=== PATIENT | female | born 1960 | race Caucasian/White ===

== ENCOUNTER → 2016-11-27 | Outpatient (CLI) | payer BC ==
[2016-11-30 09:51] LABS: Lyme IgG/IgM 0.1 Index; Lyme IgG/IgM Interp NEGATIVE (NEGATIVE)
== END | disposition home or self-care (01) ==
LOC: LABWHC1 12:49
PROVIDERS: ATTEND Psychiatry & Neurology Neurology
DX: G35 Multiple sclerosis (principal)
CPT/HCPCS: 36415; 84165; 86618

== ENCOUNTER → 2016-12-09 | Outpatient (CLI) | payer OTHER, BC ==
--- NOTE | 2016-12-09 11:17 | MR ---
EXAMINATION TYPE: MR pelvis wo/w con DATE OF EXAM: 12/09/2016 COMPARISON: NONE HISTORY: acute pain due to trauma CONTRAST: Standard multiplanar, multisequence MRI departmental protocol utilizing 6 mL intravenous Gadavist courtney olinium contrast. FINDINGS: Exam is limited by motion artifact. There is no obvious areas of abnormal marrow edema or contusion. No free fluid. Tarlov cysts are incidentally noted within the sacrum. There is degenerative disc disease involving t he lower lumbosacral spine. Suspect a spina bifida occulta lumbosacral junction. Facet arthropathy in volving the lower lumbar segment Mild trabeculation of the bladder correlate for chronic cystitis. No enhancing masses. IMPRESSION: No acute process. If there is concern for lumbar disc herniation correlate with MRI lumbar spine. Mild trabeculation of bladder. Correlate for chronic cystitis.
== END | disposition home or self-care (01) ==
LOC: RADMRIMAIN 09:14
PROVIDERS: ATTEND Physical Medicine & Rehabilitation
DX: N32.89 Other specified disorders of bladder (principal); M67.951 Unspecified disorder of synovium and tendon, right thigh; M50.221 Other cervical disc displacement at C4-C5 level; M50.321 Other cervical disc degeneration at C4-C5 level; M51.17 Intervertebral disc disorders with radiculopathy, lumbosacral region; M47.817 Spondylosis without myelopathy or radiculopathy, lumbosacral region; M79.1 Myalgia; S16.1XXA Strain of muscle, fascia and tendon at neck level, initial encounter; M46.1 Sacroiliitis, not elsewhere classified; G89.11 Acute pain due to trauma; M79.601 Pain in right arm; M79.602 Pain in left arm
CPT/HCPCS: 72197; A9581

== ENCOUNTER → 2020-07-16 | Outpatient (CLI) | payer MEDICARE | END | disposition home or self-care (01) | LOC: RADCTMAIN 16:27 | PROVIDERS: ATTEND Surgery | DX: Z53.9 Procedure and treatment not carried out, unspecified reason (principal) ==

== ENCOUNTER → 2020-07-18 | Outpatient (CLI) | payer MEDICARE ==
--- NOTE | 2020-07-18 08:52 | CT ---
EXAMINATION TYPE: CT abdomen pelvis w con DATE OF EXAM: 07/18/2020 COMPARISON: HISTORY: incisional hernia CT DLP: 1273 mGycm Automated exposure control for dose reduction was used. TECHNIQUE: Helical acquisition of images was performed from the lung bases through the pelvis. CONTRAST: Performed with Oral Contrast and with IV Contrast, patient injected with 100 mL of Isovue 300. FINDINGS: The lung bases are clear. There is surgical absence of the gallbladder. There is no biliary ductal dilatation. No focal masses seen within the liver pancreas, spleen or adrenal glands. The bowel loops are normal in caliber. There is no free intraperitoneal air or fluid. There is no paco dence of hernia. The kidneys excrete contrast promptly and symmetrically and there is no solid renal mass or hydroneph rosis. There is no retroperitoneal adenopathy or hemorrhage in the caliber of the abdominal aorta is normal. There is no pelvic mass, free fluid, abscess or adenopathy. The osseous structures are intact. IMPRESSION: No significant abnormality seen.
== END | disposition home or self-care (01) ==
LOC: RADCTMAIN 07:20
PROVIDERS: ATTEND Surgery
DX: K43.2 Incisional hernia without obstruction or gangrene (principal)
CPT/HCPCS: 74177; Q9967

== ENCOUNTER 2020-07-29 08:18 | Day surgery (SDC) | payer MEDICARE ==
[2020-07-24 16:12] VITALS: BMI 24.9
[~2020-07-29 08:18] MED LIST: ACETAMINOPHEN TAB 500 MG TAB PO PRN; DEXAMETHASONE SOD PHOSPHATE 4 MG/ML 1 ML VIAL IV ONE; HEPARIN SODIUM,PORCINE/PF 5,000 UNIT/0.5 ML SYRINGE SQ PRN; HYDROmorphone 0.5 MG/0.5 ML SYRINGE IVP PRN; LACTATED RINGERS 1,000 ML IV SCH; LIDOCAINE 1% (10MG/ML) FOR IV START INTRADERMA PRN; MIDAZOLAM 2 MG/2 ML VIAL IV PRN; ONDANSETRON 4 MG/2 ML VIAL IVP ONE; Pre Op ABX Message 1 EACH MISC MISCELLANE ONE
[2020-07-29] MEDS ORDERED: SCOPOLAMINE 1.5MG/72HR PATCH TRANSDERM ONE (09:07)
--- NOTE | 2020-07-29 10:23 | P.GSHP ---
History of Present Illness H&P Date: 07/29/20 Chief Complaint: Abdominal pain, adhesions Is a 59-year-old female who presents today for laparoscopic lysis of adhesions. Patient's had complaints of pain and nausea and partial bowel obstruction.. Past Medical History Past Medical History: Eye Disorder, Fibromyalgia, Musculoskeletal Disorder, Osteoarthritis (OA), Rheumatoid Arthritis (RA) Additional Past Medical History / Comment(s): "Beginnings of Glaucoma." Ankylosing Spondalosis (). Hx CoVid 03/27. History of Any Multi-Drug Resistant Organisms: None Reported Past Surgical History: Section, Cholecystectomy, Ear Surgery, Hernia Repair, Orthopedic Surgery, Tubal Ligation Additional Past Surgical History / Comment(s): Right knee surgery, recontruction of left ear. Umbilical hernia repair. Past Anesthesia/Blood Transfusion Reactions: No Reported Reaction, Motion Sickness Additional Past Anesthesia/Blood Transfusion Reaction / Comment(s): "Slow to wake up". Dad had PONV. Past Psychological History: No Psychological Hx Reported Smoking Status: Former smoker Past Alcohol Use History: Rare Additional Past Alcohol Use History / Comment(s): "Smoked as a kid." Past Drug Use History: None Reported - Past Family History Mother Family Medical History: Cancer Additional Family Medical History / Comment(s): Ovarian Cancer. Father Family Medical History: Cancer Additional Family Medical History / Comment(s): Testicular Cancer. Medications and Allergies Home Medications Medication Instructions Recorded Confirmed Type Latanoprost/Pf [Latanoprost 0.005% 1 drop BOTH EYES HS 07/24/20 07/29/20 History Eye Drop] Allergies Allergy/AdvReac Type Severity Reaction Status Date / Time codeine Allergy Rash/Hives Verified 07/29/20 08:35 Pepper Allergy Dyspnea Verified 07/24/20 16:15 povidone-iodine Allergy Rash/Hives Verified 07/24/20 16:14 [From Betadine] shellfish derived [Shrimp] Allergy Stuffy/runny Verified 07/24/20 16:15 nose soap [From Betadine] Allergy Rash/Hives Verified 07/24/20 16:14 Cilantro Allergy Sores in Uncoded 07/24/20 16:15 mouth/throat Surgical - Exam Vital Signs Temp Pulse Resp BP Pulse Ox 98.5 F 81 20 151/73 94 L 07/29/20 08:43 07/29/20 08:43 07/29/20 08:43 07/29/20 08:43 07/29/20 08:43 - General well developed, well nourished, no distress - Eyes PERRL - ENT normal pinna - Neck no masses - Respiratory normal expansion - Cardiovascular Rhythm: regular - Abdomen Abdomen: soft, non tender Assessment and Plan Assessment: History of adhesions. We'll perform laparoscopic lysis of adhesions.
[2020-07-29] MEDS ORDERED: fentaNYL (PF) 50 MCG/ML 2 ML AMP ONE (10:35)
[2020-07-29] MEDS ORDERED: ROCURONIUM 10 MG/ML (5 ML VIAL) IV ONE (10:35)
[2020-07-29] MEDS ORDERED: GLYCOPYRROLATE 0.2 MG/ML 2 ML VIAL ONE (10:35)
[2020-07-29] MEDS ORDERED: PROPOFOL 10 MG/ML 20 ML VIAL IV ONE (10:35)
[2020-07-29] MEDS ORDERED: NEOSTIGMINE 1 MG/ML 10 ML VIAL ONE (10:35)
[2020-07-29] MEDS ORDERED: SUCCINYLCHOLINE CHLORIDE 100 MG/5 ML SYR IV ONE (10:35)
[2020-07-29] MEDS ORDERED: LIDOCAINE 1% INJ 10MG/ML (20 ML MDV) ONE (10:35)
[2020-07-29] MEDS ORDERED: SODIUM CHLORIDE 0.9% 100 ML with ceFAZolin 2,000 MG IV ONE ×2 (10:56)
[2020-07-29] MEDS ORDERED: BUPIVACAIN-EPI 0.5%-1:200,000 30 ML VIAL SQ ONE (11:05)
--- NOTE | 2020-07-29 11:23 | P.OP ---
Date of Procedure: 07/29/20 Preoperative Diagnosis: Adhesions Postoperative Diagnosis: Adhesions, Procedure(s) Performed: Laparoscopic lysis of adhesions Appendectomy Anesthesia: SENA Surgeon: Luis Leggett Estimated Blood Loss (ml): 10 Pathology: other (Appendix) Condition: stable Disposition: PACU Description of Procedure: The patient's placed the operative table in supine position. She received general anesthesia. Her abdomen was prepped and draped usual fashion. The skin incision sites were anesthetized 1% local Xylocaine. In the left upper quadrant a skin incision made. Using a 5 ohmmeter operative trocar under visualization the Cavity is entered. The abdomen was insufflate. After adequate insufflation a 5 mm trochars placed in the left lower quadrant and then a 10 mm trocar is placed in the left lateral position. The there were some adhesions to the right colon on the lateral abdominal wall. The lysis sharp dissection. The appendix. Been questionable inflamed. At this point the mesial appendix was divided. And then Endoloop was replaced Retavase the appendix and then the epididymis performed with Harmonic scissors. The appendix was brought out through the 10 mL trocar site. There are no other adhesions seen. The trochars withdrawn. Skin was closed interrupted 3-0 Monocryl suture. Dermabond was applied. Patient top she will was sent to recovery room in stable condition.
[2020-07-29 11:24] VITALS: TEMP 97.8
[2020-07-29] MEDS ORDERED: HYDROmorphone 0.5 MG/0.5 ML SYRINGE IVP ONE (11:47)
[2020-07-29] MEDS ORDERED: LACTATED RINGERS 1,000 ML IV ONE (11:58)
[2020-07-29 12:16] VITALS: RESP 16
[2020-07-29 13:13] VITALS: BP 120/68; PULSE 88
[2020-07-29] MEDS ORDERED: SIMETHICONE 40 MG/0.6 ML DROPS 2,000 MG/30 ML BOTTLE PO ONE (13:14)
== END 2020-07-29 14:03 | disposition home or self-care (01) ==
LOC: OR 08:18
PROVIDERS: ATTEND Surgery
DX: K66.0 Peritoneal adhesions (postprocedural) (postinfection) (principal); M79.7 Fibromyalgia; M06.9 Rheumatoid arthritis, unspecified; M47.9 Spondylosis, unspecified; H40.9 Unspecified glaucoma; Z98.890 Other specified postprocedural states; Z87.891 Personal history of nicotine dependence; Z88.5 Allergy status to narcotic agent; Z91.013 Allergy to seafood; Z91.048 Other nonmedicinal substance allergy status; Z79.899 Other long term (current) drug therapy
CPT/HCPCS: 88304; 44970; J1100; J2710; J2405; J0690; J2001; J3010; J0330; J2704; J1170

== ENCOUNTER → 2020-10-16 | Outpatient (CLI) | payer MEDICARE ==
[2020-10-16 12:27] LABS: Basophils % (A) 0 %; Eosinophils # (A) 0.1 k/uL (0-0.7); Eosinophils % (A) 2 %; HCT 44.7 % (34.0-46.0); HGB 14.7 gm/dL (11.4-16.0); Lymphocytes # (A) 1.4 k/uL (1.0-4.8); Lymphocytes % (A) 27 %; MCH 29.6 pg (25.0-35.0); MCV 89.6 fL (80.0-100.0); Mean Platelet Volume 8.4; Monocytes # (A) 0.2 k/uL (0-1.0); Monocytes % (A) 4 %; Neutrophils # (A) 3.4 k/uL (1.3-7.7); Neutrophils % (A) 66 %; Platelet Count 209 k/uL (150-450); RBC 4.98 m/uL (3.80-5.40); WBC 5.1 k/uL (3.8-10.6)
--- NOTE | 2020-10-16 12:41 | XR ---
EXAMINATION TYPE: XR chest 2V DATE OF EXAM: 10/16/2020 COMPARISON: None HISTORY: 60-year-old female R05, new onset cough TECHNIQUE: Frontal and lateral views FINDINGS: The cardiomediastinal silhouette, aorta, and pulmonary vasculature are within normal limits. Lungs an d pleural spaces are clear. IMPRESSION: No acute cardiopulmonary process.
[2020-10-16 13:06] LABS: ALT 24 U/L (4-34); AST 28 U/L (14-36); African American GFR (CKD) >90 (>60 ml/min/1.73 sqM); Albumin 4.6 g/dL (3.5-5.0); Alkaline Phosphatase 95 U/L (38-126); Anion Gap 9 mmol/L; Blood Urea Nitrogen 10 mg/dL (7-17); Calcium 9.5 mg/dL (8.4-10.2); Carbon Dioxide 23 mmol/L (22-30); Chloride 109 mmol/L (98-107); Glucose 96 mg/dL (74-99); Non-African American GFR(CKD) >90 (>60 ml/min/1.73 sqM); Potassium 4.4 mmol/L (3.5-5.1); Sodium 141 mmol/L (137-145); Total Bilirubin 0.3 mg/dL (0.2-1.3); Total Protein 7.3 g/dL (6.3-8.2)
[2020-10-17 12:49] LABS: Gliadin AB IgA, Deaminated NEGATIVE (NEGATIVE); Gliadin AB IgA, Unit <0.2 U/mL; Gliadin AB IgG, Deaminated NEGATIVE (NEGATIVE)
== END | disposition home or self-care (01) ==
LOC: RADXRMAIN 10:16
PROVIDERS: ATTEND Allergy & Immunology
DX: R05 Cough (principal)
CPT/HCPCS: 71046; 80053; 82784; 83516; 85025; 86255

== ENCOUNTER → 2020-11-28 | Outpatient (CLI) | payer MEDICARE ==
[2020-11-28 22:16] LABS: Thyroid Peroxidase Antibodies 41.2 U/mL (0.0-60.0)
== END | disposition home or self-care (01) ==
LOC: LABWHC1 10:50
PROVIDERS: ATTEND Allergy & Immunology
DX: E06.3 Autoimmune thyroiditis (principal)
CPT/HCPCS: 36415; 84443; 86376; 86800

== ENCOUNTER → 2021-06-23 | Outpatient (CLI) | payer MEDICARE ==
--- NOTE | 2021-06-23 17:18 | US ---
EXAMINATION TYPE: US liver DATE OF EXAM: 06/23/2021 COMPARISON: CT 2020 CLINICAL HISTORY: R10.11 RUQ Abd pain. RUQ pain, hx cholecystectomy and appendectomy. EXAM MEASUREMENTS: Liver Length: 13.7 cm CBD: 0.63 cm Right Kidney: 9.6 x 4.5 x 4.5 cm Limited due to gas. Pancreas: Limited visibility of tail due to gas. Liver: Appears slightly coarse in echotexture. Caudate lobe appears to be slightly hypoechoic vers us due to artifact. Gallbladder: Hx cholecystectomy Evidence for sonographic Gloria's sign: No CBD: Portions seen appear to measure upper limits of normal Right Kidney: No hydronephrosis or masses seen IMPRESSION: 1. No acute ultrasound abdomen abnormality
== END | disposition home or self-care (01) ==
LOC: RADUSWWP 06:45
PROVIDERS: ATTEND Family Medicine
DX: R10.11 Right upper quadrant pain (principal); Z90.49 Acquired absence of other specified parts of digestive tract
CPT/HCPCS: 76705

== ENCOUNTER → 2021-12-14 | Outpatient (CLI) | payer MEDICARE ==
--- NOTE | 2021-12-14 14:13 | MM ---
Reason for Exam: Clinical finding. Last mammogram was performed 1 year(s) and 2 month(s) ago. Patient History: Menarche at age 13. First Full-Term at age 20. Postmenopausal. Paternal aunt had breast cancer under age 50. Risk Values: Mitali 5 year model risk: 1.3%. NCI Lifetime model risk: 6.4%. Prior Study Comparison: 06/20/1998 Bilateral Screening Mammogram, [facility]. 07/31/1999 Bilateral Special View Mammogram, [facility]. 01/16/2019 Bilateral MG 3D diag mammo w/cad SANDIP - 2, [facility]. 10/14/2020 Bilateral MG 3D screening mammo w/cad, [facility]. Tissue Density: There are scattered fibroglandular densities. Findings: Analyzed By CAD. No worrisome cluster microcalcifications or suspicious masses within either breast. Patient reports pain within both breasts. Overall Assessment: Incomplete: need additional imaging evaluation, BI-RAD 0 Management: Diagnostic Breast Ultrasound of both breasts. A clinical breast exam by your physician is recommended on an annual basis and results should be correlated with mammographic findings. This exam should not preclude additional follow-up of suspicious palpable abnormalities. Results were given to the patient verbally at the time of exam. Electronically signed and approved by: Lobo Plascencia D.O.
--- NOTE | 2021-12-14 14:29 | USB ---
Reason for Exam: Clinical finding. Patient History: Menarche at age 13. First Full-Term at age 20. Postmenopausal. Paternal aunt had breast cancer under age 50. Risk Values: Mitali 5 year model risk: 1.3%. NCI Lifetime model risk: 6.4%. Technique: Method: Whole Breast Handheld. Prior Study Comparison: 06/20/1998 Bilateral Screening Mammogram, [facility]. 07/31/1999 Bilateral Special View Mammogram, [facility]. Findings: The whole breast of both breasts, the axilla of both breasts and the retroareolar of both breasts were scanned. A complete US of all four quadrants of the breast and retro-areolar region were reviewed. Stable oval hypoechoic lesion without internal vascular flow and circumscribed margin without posterior acoustic features in the right breast at 11:00 4 cm from the nipple. This measures 1.0 x 0.3 x 0.6 cm. Overall Assessment: Probably benign, BI-RAD 3 Management: Diagnostic Breast Ultrasound of the right breast in 6 months. A clinical breast exam by your physician is recommended on an annual basis and results should be correlated with mammographic findings. This exam should not preclude additional follow-up of suspicious palpable abnormalities. ??Results were given to the patient verbally at the time of exam. Electronically signed and approved by: Lobo Plascencia D.O.
== END | disposition home or self-care (01) ==
LOC: RADMAMWWP 13:05
PROVIDERS: ATTEND Family Medicine
DX: R92.8 Other abnormal and inconclusive findings on diagnostic imaging of breast (principal); N64.4 Mastodynia; Z78.0 Asymptomatic menopausal state; Z80.3 Family history of malignant neoplasm of breast
CPT/HCPCS: 77066; 76641; G0279; 77062

== ENCOUNTER → 2022-06-24 | Outpatient (CLI) | payer MEDICARE ==
--- NOTE | 2022-06-24 09:30 | USB ---
Reason for Exam: Follow-up at short interval from prior study. Patient History: Menarche at age 13. First Full-Term at age 20. Postmenopausal. Paternal aunt had breast cancer under age 50. Risk Values: Mitali 5 year model risk: 1.3%. NCI Lifetime model risk: 6.4%. Technique: Method: Targeted. Prior Study Comparison: 01/16/2019 Bilateral MG 3D diag mammo w/cad SANDIP - 2, [facility]. 10/14/2020 Bilateral MG 3D screening mammo w/cad, [facility]. 12/14/2021 Bilateral MG 3D diag mammo w/cad SANDIP, [facility]. Findings: The upper section of the breast of the right breast, the axilla of the right breast and the retroareolar of the right breast were scanned. Targeted ultrasound of the right breast at 10:00 4 cm from the nipple with additional evaluation the nipple and axilla was performed. Stable oval hypoechoic lesion without internal vascular flow and circumscribed margin without posterior acoustic features in the right breast at 10:00 for centers and nipple measuring up to 0.9 cm. This is stable from multiple prior studies. Overall Assessment: Benign, BI-RAD 2 Management: Screening Mammogram of both breasts in 6 months. A clinical breast exam by your physician is recommended on an annual basis and results should be correlated with mammographic findings. This exam should not preclude additional follow-up of suspicious palpable abnormalities. Results were given to the patient verbally at the time of exam. Electronically signed and approved by: Lobo Plascencia D.O.
== END | disposition home or self-care (01) ==
LOC: RADUSWWP 08:57
PROVIDERS: ATTEND Family Medicine
DX: R92.8 Other abnormal and inconclusive findings on diagnostic imaging of breast (principal); Z78.0 Asymptomatic menopausal state; Z80.3 Family history of malignant neoplasm of breast

== ENCOUNTER → 2023-03-16 | Outpatient (CLI) | payer MEDICARE ==
--- NOTE | 2023-03-20 15:58 | MM ---
Reason for Exam: Screening (asymptomatic). Last mammogram was performed 1 year(s) and 3 month(s) ago. Patient History: Menarche at age 13. First Full-Term at age 20. Postmenopausal. Paternal aunt had breast cancer under age 50. Risk Values: Mitali 5 year model risk: 1.4%. NCI Lifetime model risk: 6.2%. Prior Study Comparison: 01/16/2019 Bilateral MG 3D diag mammo w/cad SANDIP - 2, [facility]. 10/14/2020 Bilateral MG 3D screening mammo w/cad, [facility]. 12/14/2021 Bilateral MG 3D diag mammo w/cad SANDIP, [facility]. Tissue Density: There are scattered fibroglandular densities. Findings: Analyzed By CAD. The pattern is symmetrical and stable. No significant interval changes. No suspicious groups of microcalcifications, spiculated or lobular masses, architectural distortion or other secondary signs of malignancy are mammographically apparent. Overall Assessment: Negative, BI-RAD 1 Management: Screening Mammogram of both breasts in 1 year. A negative mammogram report should not preclude additional follow up of suspicious palpable abnormalities. Patient should continue monthly self breast exam. A clinical breast exam by your physician is recommended on an annual basis and results should be correlated with mammographic findings. Electronically signed and approved by: Isak Diaz D.O. Radiologis
== END | disposition home or self-care (01) ==
LOC: RADMAMWWP 16:32
PROVIDERS: ATTEND Family Medicine
DX: Z12.31 Encounter for screening mammogram for malignant neoplasm of breast (principal); Z78.0 Asymptomatic menopausal state; Z80.3 Family history of malignant neoplasm of breast
CPT/HCPCS: 77063; 77067

== ENCOUNTER → 2023-04-22 | Outpatient (CLI) | payer MEDICARE ==
--- NOTE | 2023-04-22 12:24 | CT ---
EXAMINATION TYPE: CT foot LT wo con CT DLP: 515 mGycm, Automated exposure control for dose reduction was used. DATE OF EXAM: 04/22/2023 10:49 AM COMPARISON: None CLINICAL INDICATION:Female, 62 years old with history of T84.84XA PAIN DUE TO INTERNAL ORTHOPEDIC PRO ST; [facility], left great toe pain TECHNIQUE: Axial images were obtained of the CT foot LT wo con, Additional coronal and sagittal refor matted images and soft tissue and bone window were obtained for review. 3-D reconstruction was create d on a separate workstation. Contrast used: mL of , (None if empty) Oral contrast used: (None if empty) FINDINGS: Postsurgical changes of metatarsophalangeal joint with hardware present. Hardware appears i ntact. There is incomplete fusion of the first digit metatarsophalangeal joint. There is no evidence of fracture. No organizing fluid collection or evidence for osseous erosion. No significant subcutane ous edema. IMPRESSION: Postsurgical changes to the first metatarsal with hardware intact. There is incomplete fusion of the first metatarsophalangeal joint.
== END | disposition home or self-care (01) ==
LOC: RADCTMAIN 09:51
PROVIDERS: ATTEND Podiatrist Foot & Ankle Surgery
DX: M79.675 Pain in left toe(s) (principal); T84.84XA Pain due to internal orthopedic prosthetic devices, implants and grafts, initial encounter; Z98.890 Other specified postprocedural states

== ENCOUNTER → 2023-05-21 | Outpatient (CLI) | payer MEDICARE ==
[2023-05-22 07:25] LABS: ALT 25 U/L (8-44); AST 18 U/L (13-35); Chol/HDL Ratio 2.07 Ratio; Creatine Kinase 83 U/L (26-186); LDL Cholesterol,Calculated 60.4 mg/dL (0.0-131.0); VLDL Calculation 13.64 mg/dL (5.00-40.00)
== END | disposition home or self-care (01) ==
LOC: LABWHC1 09:43
PROVIDERS: ATTEND Internal Medicine Interventional Cardiology
DX: E78.5 Hyperlipidemia, unspecified (principal)
CPT/HCPCS: 36415; 80061; 82550; 84450; 84460

== ENCOUNTER → 2024-03-28 | Outpatient (CLI) | payer MEDICARE ==
--- NOTE | 2024-03-28 15:29 | XR ---
EXAMINATION TYPE: XR chest 2V DATE OF EXAM: 03/28/2024 3:13 PM COMPARISON: Chest x-ray October 16, 2020 CLINICAL INDICATION: Female, 63 years old with history of R05.1, cough for months. TECHNIQUE: Frontal and lateral views of the chest are obtained. FINDINGS: There is no focal air space opacity, pleural effusion, or pneumothorax seen. The cardiac silhouette size is within normal limits. The osseous structures are intact. IMPRESSION: No acute pulmonary process. No significant change from prior. [facility], , 03/28/2024 3:26 PM
== END | disposition home or self-care (01) ==
LOC: RADXRMAIN 14:58
PROVIDERS: ATTEND Family Medicine
DX: R05.1 Acute cough (principal)
CPT/HCPCS: 71046

== ENCOUNTER → 2024-09-17 | Outpatient (CLI) | payer MEDICARE ==
--- NOTE | 2024-09-17 14:57 | MM ---
Reason for Exam: Screening (asymptomatic). Last mammogram was performed 1 year(s) and 6 month(s) ago. Patient History: Menarche at age 13. First Full-Term at age 20. Postmenopausal. Paternal aunt had breast cancer under age 50. Risk Values: Mitali 5 year model risk: 1.4%. NCI Lifetime model risk: 6.0%. Prior Study Comparison: 10/14/2020 Bilateral MG 3D screening mammo w/cad, [facility]. 12/14/2021 Bilateral MG 3D diag mammo w/cad [facility]. 03/16/2023 Bilateral MG 3D screening mammo w/cad, [facility]. Tissue Density: There are scattered areas of fibroglandular density. Findings: Analyzed By CAD. There is no suspicious group of microcalcifications or new suspicious mass in either breast. Overall Assessment: Negative, BI-RAD 1 Management: Screening Mammogram of both breasts in 1 year. . Patient should continue monthly self-breast exams. A clinical breast exam by your physician is recommended on an annual basis. This exam should not preclude additional follow-up of suspicious palpable abnormalities. Note on Mitali scores and lifetime risk: 1. A Mitali score greater than 3% is considered moderate risk. If this is the case, consider specialist referral to assess eligibility for a risk reducing agent. 2. If overall lifetime risk for the development of breast cancer is 20% or higher, the patient may qualify for future screening with alternating mammogram and breast MRI. [facility], , 09/17/2024 2:54 PM. Electronically signed and approved by: Raji Slater M.D. Radiologis
== END | disposition home or self-care (01) ==
LOC: RADMAMWWP 14:25
PROVIDERS: ATTEND Family Medicine
DX: Z12.31 Encounter for screening mammogram for malignant neoplasm of breast (principal); R92.323 Mammographic fibroglandular density, bilateral breasts; Z78.0 Asymptomatic menopausal state; Z80.3 Family history of malignant neoplasm of breast
CPT/HCPCS: 77063; 77067